=== PATIENT | female | born 1950 | race Caucasian/White ===

== ENCOUNTER → 2023-05-28 | Outpatient (CLI) | payer MEDICARE, OTHER ==
[~2023-05-28] MED LIST: CATHETER FLUSH 10 ML SYR IV PRN; HOLD METFORMIN - RECEIVED CONTRAST 20 ML VIAL IV SCH; IOHEXOL 350 MG/ML 100 ML (OMNIPAQUE 350) VIAL IV ONE; NS 100 ML (IVPB) BAG IV ONE
[2023-05-28 11:03] LABS: BASOPHILS # (AUTO) 0.1 10^3/uL (0.0-0.1); BASOPHILS % (AUTO) 1 % (0-10); EOSINOPHILS # (AUTO) 0.1 10^3/uL (0.0-0.3); EOSINOPHILS % (AUTO) 1 % (0-10); HEMATOCRIT 43 % (35-52); HEMOGLOBIN 13.7 g/dL (11.5-16.0); LYMPHOCYTES % (AUTO) 17 % (12-44); MEAN CORPUSCULAR HEMOGLOBIN 28 pg (25-34); MEAN CORPUSCULAR HGB CONC 32 g/dL (32-36); MEAN CORPUSCULAR VOLUME 88 fL (80-99); MEAN PLATELET VOLUME 10.6 fL (9.0-12.2); MONOCYTES % (AUTO) 6 % (0-12); NEUTROPHILS % (AUTO) 76 % (42-75); PLATELET COUNT 399 10^3/uL (130-400); WHITE BLOOD COUNT 17.2 10^3/uL (4.3-11.0)
[2023-05-28 11:21] LABS: ALBUMIN 4.4 GM/DL (3.2-4.5); BILIRUBIN,TOTAL 0.5 MG/DL (0.1-1.0); CREATININE SERUM 0.71 MG/DL (0.60-1.30); POTASSIUM 4.3 MMOL/L (3.6-5.0); TOTAL PROTEIN 7.3 GM/DL (6.4-8.2)
[2023-05-28 11:32] LABS: BAND NEUTROPHILS 7 %; BASOPHILS % (MANUAL) 0 %; EOSINOPHILS % (MANUAL) 1 %; LYMPHOCYTES % (MANUAL) 17 %; MONOCYTES % (MANUAL) 7 %; NEUTROPHILS % (MANUAL) 68 %; RBC MORPH NORMAL
--- NOTE | 2023-05-28 12:17 | Diagnostic Imaging Report ---
PROCEDURE: CT abdomen and pelvis with contrast. TECHNIQUE: Multiple contiguous axial images were obtained through the abdomen and pelvis after administration of intravenous contrast. Auto Exposure Controls were utilized during the CT exam to meet ALARA standards for radiation dose reduction. All CT scans use one or more of the following dose optimizing techniques: automated exposure control, MA and/or KvP adjustment based on patient size and exam type or iterative reconstruction. INDICATION: Right lower quadrant abdominal pain and constipation. FINDINGS: There are multiple faceted stones present within the lumen of the gallbladder. No gallbladder wall thickening or pericholecystic fluid is identified and there is no evidence of focal hepatic abnormality. No pancreatic, adrenal gland, or significant splenic lesion is identified. Note is made of a calcified granuloma in the anterior aspect of the spleen. Subcentimeter retrocrural lymph nodes are present. There is a small hiatal hernia. The left kidney has a normal appearance. There is mild to moderate right hydronephrosis with dilatation of the right ureter into the pelvis. Within the right adnexal region, there is a lobulated heterogeneous mixed cystic and solid lesion measuring approximately 15 x 8.8 cm. This displaces the uterus to the left. Dystrophic calcifications in the uterus are likely due to fibroid. There is low-density in the endometrium which may represent fluid, possibly related to obstruction of the endometrial canal. The partially opacified urinary bladder is also deviated to the left without evidence of focal abnormality. IMPRESSION: Lobulated heterogeneous mixed cystic and solid mass to the right of midline in the pelvis. This is highly suspicious for ovarian neoplasm with resultant endometrial and right ureteric stenosis or obstruction. There is incidental note made of cholelithiasis and partially calcified uterine fibroids. Dictated by: Dictated on workstation # [id number]
== END ==
LOC: LAB FS 10:36
PROVIDERS: ATTEND Registered Nurse Emergency
DX: K59.09 Other constipation (principal); R19.00 Intra-abdominal and pelvic swelling, mass and lump, unspecified site; R00.0 Tachycardia, unspecified; R29.898 Other symptoms and signs involving the musculoskeletal system; R30.0 Dysuria
CPT/HCPCS: 74177; 80053; 82550; 83690; 84443; 85007; 85027; 87088; Q9967

== ENCOUNTER 2023-07-08 14:45 | Outpatient (CLI) | payer MEDICARE, OTHER ==
[~2023-07-08] VITALS: Ht 152.4 cm; Wt 64.5 kg
[2023-07-08] MEDS ORDERED: MV-M1TAB57 PO (15:01)
[2023-07-08] MEDS ORDERED: ACET-168 PO (15:01)
[2023-07-08] MEDS ORDERED: CALC500T7 PO (15:01)
[2023-07-08] MEDS ORDERED: POLY17PO6 PO (15:13)
== END 2023-07-08 15:29 | disposition home or self-care (01) ==
LOC: PREOP 14:45
PROVIDERS: ATTEND Surgery
DX: Z01.818 Encounter for other preprocedural examination (principal)

== ENCOUNTER 2023-07-09 06:39 | Day surgery (SDC) | payer MEDICARE, OTHER ==
[~2023-07-09] VITALS: Ht 152.4 cm; Wt 64.5 kg
[~2023-07-09 06:39] MED LIST changes: +ACET-168 PO; +CALC500T7 PO; -CATHETER FLUSH 10 ML SYR IV PRN; -HOLD METFORMIN - RECEIVED CONTRAST 20 ML VIAL IV SCH; -IOHEXOL 350 MG/ML 100 ML (OMNIPAQUE 350) VIAL IV ONE; +MV-M1TAB57 PO; -NS 100 ML (IVPB) BAG IV ONE; +POLY17PO6 PO
[2023-07-09] MEDS ORDERED: ceFAZolin INJECTION 2,000 MG in NS (IVPB) 50 ML 50 ML IV ONE (06:45)
[2023-07-09 06:51] VITALS: BP 133/71
[2023-07-09] MEDS ORDERED: LACTATED RINGERS 1,000 ML 1,000 ML IV PRN (07:15)
[2023-07-09] MEDS ORDERED: LIDOCAINE 2% w/EPI 1:100,000 20 ML VIAL ONE (07:18)
[2023-07-09] MEDS ORDERED: HEParin (CENTRAL IV FLUSH) 500 UNIT/5 ML SYR ONE (07:18)
[2023-07-09] MEDS ORDERED: 0.9% SODIUM CHLORIDE PF INJ 20 ML VIAL ONE (07:18)
--- NOTE | 2023-07-09 07:55 | Progress Note-Pre Operative ---
Pre-Operative Progress Note Date H&P Reviewed: Jul 09, 2023 Time H&P Reviewed: 07:44 History & Physical: H&P Reviewed, Patient Examed, No changes noted Pre-Operative Diagnosis: ovarian cancer ALEJANDRA WILCOX DO Jul 09, 2023 07:55
[2023-07-09] MEDS ORDERED: MIDAZOLAM INJ 2 MG/2 ML VIAL ONE (08:09)
[2023-07-09] MEDS ORDERED: fentaNYL INJECTION 100 MCG/2 ML VIAL ONE (08:09)
[2023-07-09 08:55] VITALS: BP 110/45
--- NOTE | 2023-07-09 08:59 | Discharge Inst-Simple/Standard ---
Discharge Inst-Standard Patient Instructions/Follow Up Plan of Care/Instructions/FU: 2 weeks Amadeo Activity as Tolerated: No Discharge Diet: Regular Diet Other Inst to Patient Follow up Appt: Make appointment for 2 week. Instructions: No lifting greater than 10 pounds. No strenuous activity. May shower in 24 hours, no tub bath or soaking. Use incentive spirometer at home as directed. No Smoking Skin/Wound Care: You have special glue over your incision that will fall off on it's own. Ice pack on 15 min and off 30 min and repeat for first 48 hours. This reduces swelling and discomfort. Symptoms to Report: Appetite Changes, Extremity Discoloration, Numbness/Tingling, Swelling Increased, Bleeding Excessive, Eyesight Changes, Pain Increased, Urine Color Change, Constipation(Persistent), Fever over 101 degree F, Pain/Pressure in chest, Urinating Difficulty, Cough Up/Vomit Blood, Heart Beat Irreg/Pounding, Pain/Pressure in jaw, Vaginal Bleeding Increase, Cramps in feet or legs, Lightheadedness, Pain/Pressure in shoulder, Diarrhea(Persistent), Memory Changes Suddenly, Questions/Concerns, Weight gain consecutive days, Dizziness/Fainting, Nausea/Vomiting, Shortness of Breath, Weight gain over 2 pounds If questions or concerns contact your physician Or seek help at emergency department. ALEJANDRA WILCOX DO Jul 09, 2023 08:59
[2023-07-09 09:00] VITALS: BP 133/56
--- NOTE | 2023-07-09 09:05 | Progress Note-Post Operative ---
Post-Operative Progess Note Surgeon (s)/Video Game Script Writer (s) Surgeon ALEJANDRA WILCOX DO Video Game Script Writer: na Pre-Operative Diagnosis ovarian cancer Post-Operative Diagnosis same Procedure & Operative Findings Date of Procedure 07/09/23 Procedure Performed/Findings PROCEDURE: Right internal jugular port placement using ultrasound guidance. COMPLICATIONS: None. INDICATIONS: The patient is a 73 year old female with ovarian cancer. Patient understands the risks and benefits of port placement and wished to proceed with the procedure. Consent was signed on the chart. PROCEDURE: The patient was taken to the operating suite, was prepped and draped in the sterile fashion. A surgical pause was performed. Ultrasound was used to locate the internal jugular vein. Once located anesthetic was infiltrated above it. Using micro-access kit, the right internal vein was accessed using u/s guidance. Dark nonpulsatile blood was withdrawn. The wire was inserted. Fluoroscopy assured proper placement. The needle was removed. The micro-access dilator was advanced over the wire and the wire was removed. The regular wire was inserted and fluoroscopy assured proper placement. The wire was then secured. Local anesthetic was used to anesthetize from the neck for tunneling down to the right chest and for pocket creation. A 15 blade scalpel was used to make an incision over the right chest. Cautery was used to dissect down to the pectoral fascia. A pocket was created with blunt dissection. The dilator sheath was then advanced over the wire under fluoroscopy and the dilator and wire were removed. The Groshong catheter was inserted through the sheath and the sheath was then removed. The Gro[place]ong wire was removed. The catheter was then tunneled to the right chest pocket. Fluoroscopy was used to cut to length and this was then attached to the port which was then placed within the pocket. The port was then accessed without difficulty. It was then flushed with saline and then heparin. The subcutaneous tissues were then reapproximated using 3-0 Vicryl. The areas were then washed and dried. Skin Affix was placed over incision. The insertion point of the neck Skin Affix was placed over the incision. The patient tolerated the procedure well without complication and was taken to recovery room in stable condition. Chest x-ray is pending. Anesthesia Type mac c local Estimated Blood Loss Estimated blood loss (mL): minimal Specimens/Packing Specimens Removed ALEJANDRA Love DO Jul 09, 2023 09:05
[2023-07-09 09:10] VITALS: BP 104/50
--- NOTE | 2023-07-09 09:14 | Diagnostic Imaging Report ---
Indication: Evaluation management of a Port-A-Cath Right IJ Port-A-Cath tip projects over the SVC. Lungs are clear. There are no effusions or pneumothoraces. IMPRESSION: No acute abnormalities in the chest. Dictated by: Dictated on workstation # [id number]
[2023-07-09 09:20] VITALS: BP_SYST 134; BP_SYST 141; BP_DIAS 61; BP_DIAS 63
[2023-07-09] MEDS ORDERED: HYDROcodone/ACETAMINOPHEN 5 MG/325 MG TABLET ONE (09:38)
[2023-07-09] MEDS ORDERED: HYDROcodone/ACETAMINOPHEN 5 MG/325 MG TABLET PO ONE (09:45)
[2023-07-09 10:20] VITALS: BP 130/79
--- NOTE | 2023-07-09 11:23 | Diagnostic Imaging Report ---
INDICATION: Port-A-Cath placement Intraoperative fluoroscopy view obtained during Port-A-Cath placement in surgery. Single view obtained, 20.7 seconds of fluoroscopy time was used. 1.75 mGy of exposure. Intraoperative view demonstrates Port-A-Cath over the right chest with catheter into the right internal jugular vein catheter tip overlying the mid SVC. The study is otherwise limited IMPRESSION: Intraoperative fluoroscopy views demonstrate Port-A-Cath placement as above. Dictated by: Dictated on workstation # [id number]
== END 2023-07-09 10:21 | disposition home or self-care (01) ==
LOC: SDC 06:39
PROVIDERS: ATTEND Surgery
DX: C56.9 Malignant neoplasm of unspecified ovary (principal); I87.2 Venous insufficiency (chronic) (peripheral)
CPT/HCPCS: 36561; 71045; 76000; 87081; C1788